=== PATIENT | female | born 1980 | race African-American/Black ===

== ENCOUNTER 2022-08-25 14:17 | Emergency (ER) | payer OTHER ==
[~2022-08-25] VITALS: Ht 170.2 cm; Wt 95.5 kg
[2022-08-25] MEDS ORDERED: NALOXONE HCL 1 MG/ML 2 ML SYRINGE IVP ONE ×2 (15:15→15:30)
[2022-08-25] MEDS ORDERED: SODIUM CHLORIDE 0.9% 1,000 ML IV ONE (15:30)
[2022-08-25 15:36] LABS: BASOPHILS % (AUTO) 0.2 % (0.0-2.0); EOSINOPHILS % (AUTO) 1.6 % (1.0-6.0); HEMATOCRIT 36.9 % (36-46); HEMOGLOBIN 11.9 g/dL (12.0-16.0); LYMPHOCYTES # (AUTO) 1.1 K/uL (1.0-4.8); LYMPHOCYTES % (AUTO) 19.9 % (22.0-44.0); MEAN CORPUSCULAR HEMOGLOBIN 30.6 pg (26.0-34.0); MEAN CORPUSCULAR HGB CONC 32.4 G/dL (31.0-37.0); MEAN CORPUSCULAR VOLUME 95 fL (80-100); MONOCYTES # (AUTO) 0.4 K/uL (0.1-1.0); MONOCYTES % (AUTO) 7.5 % (2.0-9.0); NEUTROPHILS # (AUTO) 3.8 K/uL (1.8-7.7); NEUTROPHILS % (AUTO) 70.8 % (40.0-70.0); PLATELET COUNT (AUTO) 230 K/uL (150-450); RED CELL DISTRIBUTION WIDTH 14.7 % (11.5-14.5)
[2022-08-25 15:43] LABS: ANION GAP 9 mmol/L (8-16); CALCIUM, TOTAL 8.7 mg/dL (8.8-10.5); CARBON DIOXIDE 25 mmol/L (22-29); CHLORIDE 105 mmol/L (98-107); CREATININE 0.89 mg/dL (0.60-1.30); GLUCOSE,RANDOM 115 mg/dL (70-110); POTASSIUM 3.2 mmol/L (3.5-5.1); SODIUM SERUM 139 mmol/L (136-145); UREA NITROGEN, BLOOD 10 mg/dL (7-18)
[2022-08-25 15:44] LABS: GLOMERULAR FILTR. RATE CALC 56 mL/min (>60)
[2022-08-25 15:51] LABS: AMMONIA 15 umol/L (11-32)
[2022-08-25 15:52] LABS: ALANINE AMINOTRANSFERASE 43 U/L (12-78); ALBUMIN 3.3 g/dL (3.4-5.0); ALKALINE PHOSPHATASE 107 U/L (46-116); ASPARTATE AMINOTRANSFERASE 117 U/L (15-37); BILIRUBIN,TOTAL 0.2 mg/dL (0.1-1.0); CREATINE KINASE, TOTAL ONLY 301 U/L (26-192); TOTAL PROTEIN, SERUM 7.5 g/dL (6.4-8.2)
[2022-08-25 16:00] LABS: PROTHROMBIN TIME 10.2 SEC (9.4-11.6)
[2022-08-25 16:13] LABS: LACTIC ACID 2.8 mmol/L (0.4-2.0)
[2022-08-25 18:29] LABS: AMPHET/METH SCREEN,URINE NEGATIVE (NEGATIVE); BARBITURATE SCREEN, URINE NEGATIVE (NEGATIVE); BENZODIAZEPINES SCREEN,URINE NEGATIVE (NEGATIVE); CANNABINOID SCREEN,URINE POSITIVE (NEGATIVE); COCAINE SCREEN,URINE POSITIVE (NEGATIVE); METHADONE SCREEN, URINE NEGATIVE (NEGATIVE); OPIATE SCREEN,URINE NEGATIVE (NEGATIVE)
[2022-08-25 18:30] LABS: APPEARANCE,URINE CLEAR (CLEAR)
[2022-08-25 18:31] LABS: BILIRUBIN,URINE NEGATIVE (NEGATIVE); GLUCOSE, URINE (UA) NEGATIVE (NEGATIVE); OCCULT BLOOD,URINE NEGATIVE (NEGATIVE); PH,URINE 6.5 (5.0-8.0); PROTEIN,URINE TRACE mg/dL (NEGATIVE); SPECIFIC GRAVITIY, URINE 1.017 (1.003-1.030)
[2022-08-25 18:32] LABS: KETONES,URINE NEGATIVE (NEGATIVE); LEUKOCYTE ESTERASE ,URINE TRACE (NEGATIVE); NITRATE,URINE NEGATIVE (NEGATIVE); UROBILINOGEN,URINE <=1.0 mg/dL (<=1.0)
[2022-08-25 18:33] LABS: PHENCYCLIDINE SCREEN,URINE NEGATIVE (NEGATIVE)
[2022-08-25 18:49] LABS: BACTERIA,URINE None Seen /HPF (None Seen); RBC,URINE 0-2 /HPF (0-2)
[2022-08-25 18:50] LABS: SQUAMOUS EPITHELIAL CELL,UR Rare /LPF (None Seen)
[2022-08-26] MEDS ORDERED: ONDANSETRON HCL 4 MG TABLET PO ONE
[2022-08-26 00:26] VITALS: BP 147/72
== END 2022-08-26 01:50 | disposition home or self-care (01) ==
LOC: EMS 14:30 → EDBD 14:30 → EMS 08-26 01:50
DX: T40.5X1A Poisoning by cocaine, accidental (unintentional), initial encounter (principal); T40.411A Poisoning by fentanyl or fentanyl analogs, accidental (unintentional), initial encounter; R40.4 Transient alteration of awareness; F11.90 Opioid use, unspecified, uncomplicated; Y92.89 Other specified places as the place of occurrence of the external cause
CPT/HCPCS: 99285; 96374; 70450; 71045; 96361; 80053; 81001; 82140; 82550; 83605; 84484; 85025; 85610; 85730; 36415; 93005; 80307 ×2; G0480; J2310; Q0162; 51702

== ENCOUNTER 2023-02-16 14:46 | Emergency (ER) | payer OTHER ==
[~2023-02-16] VITALS: Ht 157.5 cm; Wt 95.5 kg
[~2023-02-16 14:46] MED LIST: METF-1211 PO
[2023-02-16] MEDS ORDERED: HYDR25TA2 PO (14:51)
[2023-02-16] MEDS ORDERED: ALBUTEROL SULFATE 2.5 MG/0.5 ML NEB SOLUTION NEB ONE (15:15)
[2023-02-16] MEDS ORDERED: IPRATROPIUM BROMIDE 0.5 MG/2.5 ML NEB SOLUTION NEB ONE (15:15)
[2023-02-16] MEDS ORDERED: ONDANSETRON HCL 4 MG TABLET PO ONE (15:15)
[2023-02-16] MEDS ORDERED: PredniSONE 20 MG TABLET PO ONE (15:15)
[2023-02-16 15:32] VITALS: BP 142/81
[2023-02-16 16:06] LABS: INFLUENZA TYPE A NEGATIVE FOR TYPE A (NEGATIVE); INFLUENZA TYPE B NEGATIVE FOR TYPE B (NEGATIVE)
== END 2023-02-16 16:30 | disposition left against medical advice (07) ==
LOC: EMS 14:48
DX: R06.02 Shortness of breath (principal); J40 Bronchitis, not specified as acute or chronic; E11.9 Type 2 diabetes mellitus without complications; I10 Essential (primary) hypertension; F11.90 Opioid use, unspecified, uncomplicated; Z88.8 Allergy status to other drugs, medicaments and biological substances
CPT/HCPCS: 99284; 71045; 82962; 87804; 36415; 93005; Q0162; J7512; J7613

== ENCOUNTER 2024-02-13 12:44 | Emergency (ER) | payer OTHER ==
[~2024-02-13 12:44] MED LIST changes: +HYDR25TA2 PO
== END 2024-02-13 13:43 | disposition left against medical advice (07) ==
LOC: EMS 12:54
DX: J45.909 Unspecified asthma, uncomplicated (principal); E11.9 Type 2 diabetes mellitus without complications; I10 Essential (primary) hypertension; F11.90 Opioid use, unspecified, uncomplicated
CPT/HCPCS: 99281; Z7502

== ENCOUNTER 2025-01-26 22:33 | Emergency (ER) | payer OTHER | END 2025-01-26 23:00 | disposition left against medical advice (07) | LOC: EMS 22:36 | DX: Z53.21 Procedure and treatment not carried out due to patient leaving prior to being seen by health care provider (principal) ==

== ENCOUNTER 2025-03-04 16:03 | Emergency (ER) | payer OTHER ==
[~2025-03-04] VITALS: Ht 167.6 cm; Wt 95.5 kg
[2025-03-04 16:27] VITALS: BP 149/83; PULSE 89; RESP 18; TEMP 98; O2SAT 98
== END 2025-03-04 17:57 | disposition left against medical advice (07) ==
LOC: EMS 16:03
DX: R06.02 Shortness of breath (principal); Z53.21 Procedure and treatment not carried out due to patient leaving prior to being seen by health care provider
CPT/HCPCS: 93005

== ENCOUNTER 2025-04-17 09:45 | Emergency (ER) | payer OTHER ==
[~2025-04-17] VITALS: Ht 160 cm; Wt 85.0 kg
[2025-04-17 09:53] VITALS: TEMP 98.3
[2025-04-17 10:22] LABS: BASOPHILS % (AUTO) 0.5 % (0.0-2.0); EOSINOPHILS % (AUTO) 3.1 % (1.0-6.0); HEMATOCRIT 30.2 % (36-46); HEMOGLOBIN 9.6 g/dL (12.0-16.0); LYMPHOCYTES # (AUTO) 2.3 K/uL (1.0-4.8); LYMPHOCYTES % (AUTO) 33.6 % (22.0-44.0); MEAN CORPUSCULAR HEMOGLOBIN 24.3 pg (26.0-34.0); MEAN CORPUSCULAR HGB CONC 31.7 G/dL (31.0-37.0); MEAN CORPUSCULAR VOLUME 77 fL (80-100); MONOCYTES # (AUTO) 0.6 K/uL (0.1-1.0); MONOCYTES % (AUTO) 8.8 % (2.0-9.0); NEUTROPHILS # (AUTO) 3.8 K/uL (1.8-7.7); PLATELET COUNT (AUTO) 354 K/uL (150-450); RED BLOOD CELL COUNT(AUTO) 3.92 MIL/uL (4.00-5.20)
[2025-04-17 10:24] LABS: ANION GAP 9 mmol/L (8-16); CALCIUM, TOTAL 8.5 mg/dL (8.8-10.5); CARBON DIOXIDE 27 mmol/L (22-29); CHLORIDE 103 mmol/L (98-107); CREATININE 0.82 mg/dL (0.60-1.30); GLOMERULAR FILTR. RATE CALC > 60 mL/min (>60); GLUCOSE,RANDOM 121 mg/dL (70-110); POTASSIUM 3.1 mmol/L (3.5-5.1); SODIUM SERUM 139 mmol/L (136-145); UREA NITROGEN, BLOOD 9 mg/dL (7-18)
[2025-04-17 10:26] LABS: RBC MORPHOLOGY COMMENT ABNORMAL RBC MORPH
[2025-04-17 10:34] LABS: TROPONIN I-HIGH SENSITIVITY 23 ng/L (<51)
[2025-04-17] MEDS: POTASSIUM CHLORIDE 20 MEQ ER TABLET PO ONE (11:27)
[2025-04-17] MEDS: IPRATROPIUM BROMIDE 0.5 MG/2.5 ML NEB SOLUTION NEB ONE (11:58)
[2025-04-17] MEDS: ALBUTEROL SULFATE 2.5 MG/0.5 ML NEB SOLUTION NEB ONE (11:58)
[2025-04-17 11:59] VITALS: PULSE 86; RESP 16; O2SAT 99
[2025-04-17 12:00] VITALS: PULSE 88; RESP 16; O2SAT 99
[2025-04-17 12:15] VITALS: BP 125/85; PULSE 88; RESP 16; O2SAT 99
[2025-04-17] MEDS ORDERED: ALBU18HF12 IH (12:21)
== END 2025-04-17 12:31 | disposition home or self-care (01) ==
LOC: EMS 09:47
DX: F41.9 Anxiety disorder, unspecified (principal); E87.6 Hypokalemia; J45.909 Unspecified asthma, uncomplicated; I11.0 Hypertensive heart disease with heart failure; I50.9 Heart failure, unspecified; E11.9 Type 2 diabetes mellitus without complications; F11.90 Opioid use, unspecified, uncomplicated; F17.210 Nicotine dependence, cigarettes, uncomplicated; F14.90 Cocaine use, unspecified, uncomplicated; Z88.5 Allergy status to narcotic agent; Z88.8 Allergy status to other drugs, medicaments and biological substances
CPT/HCPCS: 71045; 80048; 82962; 83880; 84484; 85025; 93005; 94640; 99285; 36415-L1; 36415-TC; J7613

== ENCOUNTER 2025-04-22 12:00 | Emergency (ER) | payer OTHER ==
[~2025-04-22] VITALS: Ht 160 cm; Wt 125.0 kg
[~2025-04-22 12:00] MED LIST changes: +ALBU18HF12 IH; -HYDR25TA2 PO; -METF-1211 PO
[2025-04-22 12:15] VITALS: TEMP 97.7
[2025-04-22 13:13] LABS: TROPONIN I-HIGH SENSITIVITY 18 ng/L (<51)
[2025-04-22 13:52] VITALS: BP 152/94; PULSE 88; RESP 18; O2SAT 97
== END 2025-04-22 14:10 ==
LOC: EMS 12:02
DX: R06.4 Hyperventilation (principal); E11.9 Type 2 diabetes mellitus without complications; J45.909 Unspecified asthma, uncomplicated; I11.0 Hypertensive heart disease with heart failure; I50.9 Heart failure, unspecified; F17.210 Nicotine dependence, cigarettes, uncomplicated; F10.90 Alcohol use, unspecified, uncomplicated; Z88.8 Allergy status to other drugs, medicaments and biological substances; Y90.9 Presence of alcohol in blood, level not specified
CPT/HCPCS: 71045; 83880; 84484; 99284; 36415-L1; 36415-TC